=== PATIENT | female | born 1955 | race Caucasian/White ===

== ENCOUNTER → 2023-11-11 12:46 | Outpatient (REF) | payer OTHER, SELFPAY | LOC: HWWDC 12:46 | PROVIDERS: ATTENDING PHYSICIAN Family Medicine | DX: Z12.31 Encounter for screening mammogram for malignant neoplasm of breast (principal) | CPT/HCPCS: 77063; 77067 ==

== ENCOUNTER → 2023-11-22 09:13 | Outpatient (REF) | payer OTHER, SELFPAY | LOC: WDC 09:13 | PROVIDERS: ATTENDING PHYSICIAN Family Medicine | DX: R92.8 Other abnormal and inconclusive findings on diagnostic imaging of breast (principal) | CPT/HCPCS: 77065 ==

== ENCOUNTER 2024-11-17 16:38 | Inpatient (IN) | payer OTHER, SELFPAY ==
[2024-11-16] VITALS (12 sets, daily range): BP systolic 144–208; BP diastolic 60–93; BMI 25.1; BMI 25.0
[2024-11-16 12:25] LABS: Hematocrit 44.4 % (37.0-47.0); Hemoglobin 15.0 g/dL (12.0-16.0); Mean Corp Hgb Conc. 33.8 g/dL (33.0-37.0); Mean Corpuscular Volume 85.4 fL (81.0-99.0); Nucleated Red Blood Cells % 0 %; Platelet Count 236 10^3/uL (130-400); Red Cell Dist. Width 13.4 % (11.5-14.5)
[2024-11-16 12:36] LABS: INR 0.92; PT 12.8 Sec (11.4-14.6)
[2024-11-16 12:48] LABS: ALT (SGPT) 30 U/L (0-35); AST (SGOT) 33 U/L (14-36); Albumin 4.7 g/dl (3.5-5.0); Alkaline Phosphatase 81 U/L (38-126); Blood Urea Nitrogen 15 mg/dl (7-17); Calcium 10.5 mg/dl (8.4-10.2); Carbon Dioxide 29 mmol/L (22-30); Chloride 105 mmol/L (98-107); Estimated Creatinine Clearance 61 ml/min; Glucose 86 mg/dl (70-99); Potassium 5.1 mmol/L (3.5-5.1); Sodium 140 mmol/L (135-145); Total Protein 8.5 g/dl (6.3-8.2); eGFR > 60.00
--- NOTE | 2024-11-16 12:57 | ED.GENMED ---
History of Present Illness
General
Chief Complaint: Dizziness
Source: patient and spouse
Exam Limitations: none
Time Seen by Provider: 11/16/24 12:39
Nursing documentation reviewed up to this point in time: agreed with
History of Present Illness
History of Present Illness:
The patient is a 69-year-old female with a past medical history of depression and anxiety who was sent in from her primary care doctor's office for acute balance problems for 1 week. Patient reports over the last week, she is not dizzy, however,
she reports she is not able to walk straight. Over the last 5 days, she has fallen at least once a day due to problems with her balance. Patient did not strike her head. She denies headache. She denies vision changes. The falls have caused her
to have mild left wrist pain and bruising as well as right hip pain and bruising. Patient states she is not sure if she is having a stroke or if her lack of balance is due to her ' playing around with her trazodone'. The patient reports that she
was weaned off of her lorazepam 3 months ago. She reports that she has been on trazodone twice a day for at least 15 years. She reports that due to experiencing some anxiety, she has been taking her trazodone in the morning which she had not done
before. Patient reports she started doing this about 1 to 2 weeks ago. She admits to taking 100 mg of trazodone 3 times a day. Prior to this, she was only taking trazodone twice a day. She admits that the trazodone does make her tired. Patient
also reports 5 days of weakness in her right hand and arm.
Past History
Past History
ED Past Medical History: Fibromyalgia, HTN and Psychiatric
ED Past Surgical History: Other
Social History
Tobacco: Non-smoker
Alcohol: Former
Drug: None
Personal:
Living: with family
Employment: Other
Family History
Family History: Other
Review of Systems
Review of Systems
Allergies reviewed?: Yes
All Other Systems: ROS reviewed and negative except as documented in HPI and ROS
Constitutional: Reports no symptoms
EENT: Reports no symptoms
Respiratory: Reports trouble breathing (In the past but not active at this time)
Cardiac: Reports chest pain (In the recent past but not having chest pain now)
ABD/GI: Reports no symptoms
: Reports no symptoms
Musculoskeletal: Reports no symptoms
Skin: Reports no symptoms
Neurological: Reports dizzy and weakness (Right hand and arm)
Endocrine: Reports no symptoms
Hematologic/Lymphatic: Reports no symptoms
Psychiatric: Reports no symptoms
Phy Exam
Physical Exam
Physical Exam:
Physical Exam
General: no apparent distress, not acutely ill
Neck: supple. no meningeal signs. normal psoterior pharynx. Nontender cervical spine
Heart: s1/s2 regular rate and rhythm, no murmur. equal radial pulses.
Lungs: no acute respiratory distress. clear bilaterally. No vertebral spine tenderness
Abdomen: normal bowel sounds. not tender. no CVAT
Neuro: alert and orientedx3. No drift in upper and lower extremities when checking strength. Right hand policy analyst is less strong than left hand policy analyst which patient reports is new. Normal [id number]. Extraocular muscles
intact. Patient reports if she got up out of bed she would fall to 1 side
Skin: no rash. Ecchymotic left anterior wrist. Ecchymotic right proximal thigh area
Psychiatric: well kept. interactive and cooperative
Extremities: no edema. no calf tenderness. negative homans. good distal pulses. No bony tenderness of upper or lower extremities. Pelvis and hips nontender
Scores
NIH Stroke Score
Level of Consciousness: 0 - Alert
LOC Questions: 0-Answers both correctly
LOC Commands: 0-Performs both correctly
Best Horizontal Gaze: 0-Normal
Visual Chang: 0=Normal, no visual loss
Facial Palsy: 0=Normal, symmetrical
Motor - Right Arm: 0=No drift 10 seconds
Motor - Left Arm: 0=No drift 10 seconds
Motor - Right Le-No drift 5 seconds
Motor - Left Le-No drift 5 seconds
Limb Ataxia: 0-Absent
Sensation: 0-Normal
Best Language: 0-No aphasia
Dysarthria: 0-Normal
Extinction and Inattention: 0-No abnormality
NIH Total Score:: 0
Course
Orders/Labs/Results
Orders:
Orders
11/16/24 11:35
Electrocardiogram (*1) Urgent
Reason for Study: Chest Pain
CT Head W/o Iv Contrast Urgent
Comment: symtoms for 6-7 days
Reason For Exam: right arm weakness and persistant dizziness
11/16/24 11:36
EKG- Treatment ONCE
11/16/24 12:05
Alcohol Urgent
Comprehensive Metabolic Panel Urgent
Ferritin Urgent
Folate Urgent
Prothrombin Time Urgent
TSH Reflex To Free T4 Urgent
Troponin I Urgent
Vitamin B12 Urgent
Comment: FOLATE,FERRITIN,TSH REFLEX, B12 ADDED ON BY FLOOR 1:50PM 11-16-24
11/16/24 12:06
Complete Blood Count/With Diff Urgent
11/16/24 12:57
Consult Neurology [NEUROLOGY CONSULT] Urgent
Consulting Provider: Bam Kay
Was physician already notified: Yes
Reason for consult: acute balance problem
11/16/24 13:13
Add On- LAB Urgent
Tests Added?: serum alcohol
Urinalysis Reflex To Culture Urgent
11/16/24 13:47
Urine Drug Abuse Screen Routine
11/16/24 13:48
Add On- LAB Routine
Tests Added?: folate, ferritin, TSH reflex, B12
MR Brain Without Contrast Routine
Comment:
Reason For Exam: gait dysf, right hand weakness
Recent pill cam endoscopy?: No
11/16/24 13:51
Lorazepam [Ativan] 1 mg PO ONCE PRN PRN
11/16/24 14:04
Ot Eval And Treat Routine
Pt Eval And Treat Routine
Treatment: +Romberg, concern for stroke
Activity Level: Out of Bed-Early Mobility
11/16/24 15:00
Thiamine HCl [Vitamin B1] 100 mg PO DAILY
11/17/24 06:00
Cardiovascular Evaluation IN AM
Hemoglobin A1c [Glycohemoglobin (HgbA1c)] IN AM
Abnormal Lab Results
11/16/24 11/16/24
12:05 12:06
Absolute Monos (auto) 1.0 H 10^3/uL
(0.1-0.6)
Monocytes % 10.5 H %
(1.7-9.3)
Calcium 10.5 H mg/dl
(8.4-10.2)
Total Protein 8.5 H g/dl
(6.3-8.2)
11/16/24 12:06
11/16/24 12:05
Vital Signs
Initial and Last Documented VS:
Initial Vital Signs
Temp Pulse Resp BP Pulse Ox
98.1 F 89 18 208/86 96
11/16/24 11:28 11/16/24 11:28 11/16/24 11:28 11/16/24 11:28 11/16/24 11:28
Last Documented Vital Signs
Temp Pulse Resp BP Pulse Ox
98.1 F 88 16 186/83 96
11/16/24 11:28 11/16/24 12:51 11/16/24 12:30 11/16/24 13:00 11/16/24 12:57
MDM/Problems Addressed
Differential Diagnosis Includes:
Acute CVA, mental status due to trazodone, UTI
MDM/Problems Addressed:
Patient presents with acute disturbances in balance
Chronic conditions affecting care: HTN
Acute Exacerbation and/or Progression of Chronic Illness:
Patient is elevated blood pressure may be causing acute neurological problems such as a hypertensive urgency or emergency
Acute Exacerbation and/or Progression of Chronic Illness: HTN
*Pulse Oximetry
SaO2: 96
Oxygen Mode of Delivery: Room air
Patient hypoxic: no
Comment: 96% on room air
*EKG
Interpreted by ED Provider?: Yes
Interpretation: abnormal
Comparison EKG: no comparison EKG present
Rate: normal
Rhythm: sinus
Garner: normal axis
Interval: normal interval
QRS Pattern: normal QRS
Ischemia: no ischemia
*Records Manager Interpretation
Rate: normal
Interpretation: normal
Rhythm: sinus
*Critical Care Note
Total Time (30-74mins, 75-104mins- exclusive of procedures): 45 minutes
comment:
45 minutes critical care given to patient including reviewing her EKG, lab work, speaking to neurology, and counseling the patient and her
Data Reviewed
Review of Other/Old Records Reveals: Radiology Studies (CT head normal from 2019)
Source: patient and spouse
Update Note
Update Note:
Neurology came to evaluate patient. Due to concern about possible stroke, decision made to admit patient. Additionally, patient will be evaluated by PT given her frequent falls.
Given 1 week of symptoms and NIH stroke score of 0, decision made to not give patient thrombolytics
ED Attending Note
-
Portions of this chart may have been created with voice recognition software.� Occasional wrong word or��sound alike� substitutions may have occurred due to the inherent limitations of voice recognition software.
Discharge Plan
Departure
Patient Disposition: Admit
Date of Disposition: 11/16/24
Time of Disposition: 14:24
Admit to: Telemetry
Presentation/result/management discussed w/ accepting MD/DO: Hospitalist
Patient with high blood pressure during this ER visit?: Yes
Condition: Good
Covid-19: Not Applicable
Discharge Problem:
Acute cerebrovascular accident (CVA)
Prescriptions:
No Action
paroxetine HCl [Paxil] 40 MG tablet
40 mg PO DAILY
clonazepam [Klonopin] 0.5 MG tablet
0.5 mg PO TID
Tegretol 200 MG
200 mg PO BID
Motrin 600 MG Capsule
600 mg PO TID
Referrals:
Stephon Garcia DO [Family Provider, Family Practice]
Interventions
Interventions:
*Risk Screen - Suicide Last Done: 11/16/24 11:28
*General Assessment Last Done: 11/16/24 11:28
*Neglect/Abuse Screening Last Done: 11/16/24 11:28
*ED- Fall Risk Assessment Last Done: 11/16/24 11:55
*ED COVID-19 Vaccine History Last Done: 11/16/24 11:55
ED- Neurological Assessment Last Done: 11/16/24 12:20
Discharge Date and Time
Print Language: KINYARWANDA
[2024-11-16 13:00] LABS: Troponin I < 0.012 ng/ml
--- NOTE | 2024-11-16 13:29 | CON.NEURO4 ---
Addendum entered and electronically signed by Bam Kay MD 11/16/24 16:51:
Studies reviewed.
I have personally examined the patient. I reviewed and agree with the WORK STATION SUPPORT SPECIALIST's Note.
My addenda:
Awake, alert, interactive. No acute distress.
Speech intact.
Follows 2-step requests w/o difficulty. No tremor.
Extra-ocular movements grossly intact.
Facial movements full and symmetric. Hearing intact to normal conversational volume.
Normal UE movements bilaterally.
Neck: full ROM.
Chest: no dyspnea
Heart: no JVD
Ext: (-) Clubbing, (-) Cyanosis, (-) Edema
IMPRESSIONS/RECOMMENDATIONS:
Abrupt onset of gait dysfunction beginning approximately 5 to 7 days ago. Patient has been more unsteady on her feet at that time and reports that her typical hand numbness was worsened since that time
Differential diagnosis includes acute ischemic stroke, brainstem mass, somatization disorder
Check MRI of brain without contrast
Provide aspirin due to the possibility of acute ischemic stroke
Would have the patient have outpatient psychiatric evaluation due to her trazodone dependence
The patient's tardive dyskinesia will likely require medication for control
Start thiamine
D/W patient / family
Will continue to follow pending results.
Original Note:
Documented by User: Cindy Ralph NP 11/16/24 16:07
Consultation - Neurology 4
-
CONSULTING PHYSICIAN: Bam Kay MD
REFERRING PHYSICIAN: ER/Dr. Maddox
DICTATED BY: NICKO Hargrove
DATE/TIME OF REQUEST: 11/16/24
DATE/TIME OF CONSULTATION: 11/16/24
Reason for Consultation: Balance dysfunction
History of Present Illness:
This is a 69-year-old right-handed female who has presented to the hospital with (chief complaint). Patient reports that about 6-7 days ago she got out of bed and couldn't stay standing. She managed her way down the stairs and reached the kitchen,
where she fell backwards to the ground hurting her right wrist. She reports her walking has been very off balance since then, she fell again yesterday. When she walks she feels like she is falling to the right side. She reports issues with right
hand numbness for 10-15 years; at some point she saw ortho and had an injection in her shoulder that helped. She also notes mild left hand numbness starting 2 years ago. About 6 days ago when her balance became off she notes that her bilateral hand
numbness, particularly on the right became significantly worse. CT head was obtained on arrival and is negative for any acute abnormalities. Blood pressure is elevated at 208/86. She denies any headache, room-spinning, vision changes,
speech/swallow difficulty. She reports that she thinks it is her trazodone that is causing her symptoms, her notes that she doesn't always take her medications as prescribed. She is not taking any blood thinning medications.
Past Medical History: HTN, anxiety, insomnia, fibromyalgia
Surgical History: Denies.
Family History: Reviewed and noncontributory.
Social History: Former alcohol. Denies tobacco and illicit drug use.
Allergies: No known allergies.
Home Medications: See below.
Review of Symptoms:
Patient denies any fever, headache, chest pain, shortness of breath, GI or symptoms.
�Per the HPI.�All systems are reviewed negative except above.
Physical Exam:
The patient is afebrile, abdomen is nondistended, breathing is unlabored, skin is warm and dry, no edema.
NIH Stroke Scale:
I performed the NIH stroke scale on the patient on 11/16/24 at 1340. The patient scored 3 points on the NIH stroke scale assessment, which were assigned as follows: See below.
Neurologic Examination:
The patient is awake, alert and oriented x 3. Poor historian. +Lingual tardive dyskinesia. Moderate difficulty following two-step commands. There is no aphasia or dysarthria. On cranial nerve assessment, pupils are 3 mm bilateral, round and
reactive to light and accommodation. Visual chang are full. Extraocular movements are intact. Facial sensations are intact and bilaterally symmetrical, there is no facial asymmetry. Hearing is intact bilaterally to normal conversation volume.
Tongue palate and uvula are midline. Sternocleidomastoid strengths are full bilaterally. Motor strengths are 5/5 bilateral upper and lower extremities on medical research [place] scale. There is slight drift in the RUE. Deep tendon reflexes are 2+
bilateral upper and 1+ bilateral lower extremities and Babinski is absent bilaterally. There was no extinction noted on double simultaneous stimulation. Coordination is intact by finger to nose bilaterally. RUE satellites around RUE. Romberg is very
positive.
Lab Results: See below.
Neuro Imaging:
1. CT Head 11/16/24: No acute intracranial abnormality noted.
Differentials for the patient's presentation include:
1. Sudden onset gait dysfunction, and worsened chronic numbness. Concern for subacute ischemic stroke versus metabolic disturbance in the setting of mismanaging her medications.
2. Hypertensive urgency.
Patient has the following risk factors for their symptoms: HTN urgency, polypharmacy
IV Tenecteplase/IAT candidacy: Not a candidate due to outside of time window.
Recommendations:
-MRI brain noncontrast pending.
-Start aspirin 81mg daily.
-Goal normotension.
-Start thiamine 100mg PO daily.
-PT/OT evaluations.
-Would minimize sedating medications.
-NIHSS/neurological checks per unit guidelines.
-Provide patient with a stroke education packet.
-DVT prophylaxis.
Discussed patient care with: Dr. Kay, the patient, patient's spouse
Vital Signs and Labs
-
Vital Signs and Labs:
Vital Signs
Temp Pulse Resp BP Pulse Ox
98.1 F 88 16 186/83 96
11/16/24 11:28 11/16/24 12:51 11/16/24 12:30 11/16/24 13:00 11/16/24 12:57
Lab Results
11/16/24 12:06
11/16/24 12:05
PT 12.8 Sec (11.4-14.6) 11/16/24 12:05
INR 0.92 11/16/24 12:05
Sodium 140 mmol/L (135-145) 11/16/24 12:05
Potassium 5.1 mmol/L (3.5-5.1) 11/16/24 12:05
BUN 15 mg/dl (7-17) 11/16/24 12:05
Glucose 86 mg/dl (70-99) 11/16/24 12:05
Calcium 10.5 mg/dl (8.4-10.2) H 11/16/24 12:05
Medications
-
Home Medications
�Medication �Instructions �Recorded
Motrin 600 mg PO TID 03/14/08
Tegretol 200 mg PO BID 03/14/08
clonazepam 0.5 mg tablet (Klonopin) 0.5 mg PO TID 03/14/08
paroxetine HCl 40 mg tablet (Paxil) 40 mg PO DAILY 03/14/08
NIH Stroke Score
Subsequent NIH Scale
Date of Subsequent NIH Scale: 11/16/24
Time of Subsequent NIH Scale: 13:40
NIH Stroke Score
Level of Consciousness: 0 - Alert
LOC Questions: 0-Answers both correctly
LOC Commands: 0-Performs both correctly
Best Horizontal Gaze: 0-Normal
Visual Chang: 0=Normal, no visual loss
Facial Palsy: 0=Normal, symmetrical
Motor - Right Arm: 1=Drift < 10 seconds
Motor - Left Arm: 0=No drift 10 seconds
Motor - Right Le-No drift 5 seconds
Motor - Left Le-No drift 5 seconds
Limb Ataxia: 1-Present in one limb
Sensation: 1-Mild loss
Best Language: 0-No aphasia
Dysarthria: 0-Normal
Extinction and Inattention: 0-No abnormality
NIH Total Score:: 3
Modified Humphreys (mRS) Score
Modified Lily Scale (mRS): Slight disability. Able to look after own affairs.
Score: 2

Documented by User: Bam Kay MD 11/16/24 16:45
NIH Stroke Score
NIH Stroke Score
NIH Total Score:: 3
Modified Humphreys (mRS) Score
Score: 2
[2024-11-16] MEDS: VITAMIN B1 100 MG PO (14:50)
[2024-11-16] MEDS: DESYREL 100 MG PO ×2 (14:50→20:48)
--- NOTE | 2024-11-16 15:18 | HPS.HSE ---
Addendum entered and electronically signed by Dany Last MD 11/16/24 17:01:
This is an addendum to H&P written by Cindy Mas on 11/16/2024. �Patient seen and examined independently with VENETIAN BLIND TAPE CUTTER.
69-year-old female past medical history of hypertension, anxiety/depression, history of benzodiazepine use, presenting with feeling off balance for past 6 days and right arm numbness for 6 days. �No improvement of symptoms.
Vital signs show blood pressure up to 206/75.
Patient with possible acute CVA although symptoms for 6 days. �Also with hypertensive urgency likely due to olmesartan noncompliance. �Would be out of window for TNK. �Check MRI brain. �Check UDS, TSH, B12. �Check A1c and lipid panel. �Neurology
consulted. �Doubt patient is compliant with olmesartan. �Continue olmesartan and as needed labetalol if needed.
Original Note:
Family Physician
-
Family Physician: Stephon Garcia
Chief Complaint
-
acute gait dysfunction
History of Present Illness
Patient is a 69-year-old female with past medical history significant for hypertension and depression/anxiety who presented to [facility] ED for evaluation of acute gait dysfunction. Patient reports that she has been having difficulty ambulating and
staying on balance for the past 6 days. She states every time she gets out of bed she falls, denies any injuries and denies any head strike. Multiple bruises present consistent with falling. Patient reports she thinks this is happening because 'I
was playing with dosing of trazodone because I want to get off of it. But I can not get off of it.' She says associated 6 days of right arm numbness. Patient reports primary care manages her medications and she went to see them today and they
referred her to ED for evaluation and treatment. Patient said to this provider, 'Take me out back and shoot me like a horse. I think I would like that.' Nursing followed up with additional suicidal screening and was negative and patient reported she
was 'just joking.' Patient denies any dizziness, palpitations, chest pain, cough, shortness of breath, fever, chills, nausea, vomiting, constipation, diarrhea or urinary symptoms.
Medical History
Past Medical History
Past Medical History: Reports Other
Additional Past Medical History:
hypertension
depression/anxiety
Past Surgical History: Reports Other
Additional Past Surgical History:
Back surgery 05/27/2011
section 09/07/2016
Back operation 09/07/2016
Epigastric hernia repair 08/2016
Bilateral breast augmentation
bilateral breast augmentation revision
Social History
Tobacco: Non-smoker
Alcohol: None
Drug: None
Personal:
Living: With Family
Employment: Retired
Family History
Family History: Other (Father: Parkinson's Disease )
Allergies / Home Medications
Allergies reflects when Allergies were last updated in [employer].
Home Medications with original date entered in [employer]
Allergy/Medication List:
Allergies
Allergy/AdvReac Type Severity Reaction Status Date / Time
No Known Allergies Allergy Unverified 09/11/16 11:09
Home Medications
duloxetine 20 mg capsule,delayed release 60 mg PO DAILY 11/16/24
ibuprofen 200 mg tablet (Advil) 400 mg PO DAILYPRN PRN mild pain 11/16/24
olmesartan 20 mg tablet (Benicar) 20 mg PO DAILY 11/16/24
trazodone 100 mg tablet 100 mg PO TID 11/16/24
Review of Systems
-
History Source: Patient
Constitutional: Reports Night Sweats
EENT: Reports No Symptoms
Respiratory: Reports No Symptoms
Cardiac: Reports No Symptoms
Abdomen/GI: Reports No Symptoms
: Reports No Symptoms
Musculoskeletal: Reports Other (unsteady gait and multiple falls for 6 days )
Skin: Reports No Symptoms
Neurological: Reports Numbness (RUE )
Endocrine: Reports No Symptoms
Hematologic/Lymphatic: Reports No Symptoms
Psych: Reports No Symptoms
Physical Exam
Vital Signs
Vital Signs
Temp Pulse Resp BP Pulse Ox
98.1 F 92 19 186/83 96
11/16/24 11:28 11/16/24 14:30 11/16/24 14:30 11/16/24 13:00 11/16/24 12:57
Physical Exam
General: Well Developed, Well Nourished, No Apparent Distress, Comfortable and Conversant
HEENT: NormoCephalic, Moist mucous membranes and Atraumatic
Respiratory: Clear and Non Labored Respirations
Cardiac: S1/S2 and Regular Rhythm; No Murmur, Rub or Gallop
Breast: Deferred by me
GI: Soft, Non Tender, Non Distended and Normal Bowel Sounds
Rectal: Deferred by Provider
Genito-urinary: Deferred by me
Musculoskeletal: No Clubbing, No Cyanosis and No Edema
Skin: Warm and IV/Catheter Site
Neuro: Awake, AO x 3, No Motor Deficits, Nonfocal/grossly intact and No Sensory Deficits; No Slurred Speech, Facial Droop or Tremors
Hematologic/Lymphatic: No Lymphadenopathy
Psych: Calm
Laboratory Results
-
11/16/24 12:06
11/16/24 12:05
Laboratory Results
PT 12.8 Sec (11.4-14.6) 11/16/24 12:05
INR 0.92 11/16/24 12:05
Total Bilirubin 0.7 mg/dl (0.2-1.3) 11/16/24 12:05
AST 33 U/L (14-36) 11/16/24 12:05
ALT 30 U/L (0-35) 11/16/24 12:05
Alkaline Phosphatase 81 U/L (38-126) 11/16/24 12:05
Troponin I < 0.012 ng/ml 11/16/24 12:05
Data Reviewed
-
CT Scan: Report Reviewed by me (Head: No acute intracranial abnormality noted.)
Medical Tests (Nuc Med, Echo, EKG etc): Report Reviewed by me (EKG: NORMAL SINUS RHYTHM MINIMAL VOLTAGE CRITERIA FOR LVH, MAY BE NORMAL VARIANT ( R in aVL ))
Lab Data: Labs Reviewed by me
Impression/Plan
-
IMPRESSION/PLAN:
#acute gait dysfunction 2/2 CVA/TIA vs. medication adjustments
Head CT: No acute intracranial abnormality noted.
EKG: NORMAL SINUS RHYTHM
MINIMAL VOLTAGE CRITERIA FOR LVH, MAY BE NORMAL VARIANT ( R in aVL )
- Admit to telemetry
- Consult Neurology
- NIH and Neuro checks per protocol
- MRI in AM
- Consult PT/OT
#hypertension
- continue olmesartan
- Labetalol PRN
#depression/anxiety
- continue duloxetine and trazodone
Code status: full code
DVT prophylaxis: SCDs
[2024-11-16] MEDS: TRANDATE 10 MG IV (16:21)
[2024-11-16 17:09] LABS: Urine Character Clear (Clear)
[2024-11-16 18:13] LABS: Ferritin 51.6 ng/ml (11.1-264.0)
--- NOTE | 2024-11-16 18:29 | PTCARENOTE ---
Received pt from ED into room 412-1. Pt ambulatory to bed x1 assistance. Skin intact, L wrist and R hip bruising noted from previous falls. Bed alarm in place. NIH completed, score 1. Neuro check WNL. Pt denies any pain. Pt oriented to room,
educated pt on plan of care and importance of use of call dominguez. Pt states understanding. No complaints at this time, call dominguez within reach.
[2024-11-16 18:45] LABS: Folate 8.3 ng/ml (2.76-20); Vitamin B12 455 pg/ml (239-931)
--- NOTE | 2024-11-16 19:24 | PTCARENOTE ---
Rn flow floor attendant-admission question completed via phone interview.
[2024-11-17] VITALS (8 sets, daily range): BP systolic 139–173; BP diastolic 65–85; PULSE 81; O2SAT 94
[2024-11-17 08:49] LABS: Blood Urea Nitrogen 14 mg/dl (7-17); Calcium 10.0 mg/dl (8.4-10.2); Carbon Dioxide 25 mmol/L (22-30); Chloride 107 mmol/L (98-107); Estimated Creatinine Clearance 58 ml/min; Glucose 113 mg/dl (70-99); HDL Cholesterol 69 mg/dl; LDL Cholesterol, Calculated 103 mg/dl; Potassium 4.2 mmol/L (3.5-5.1); Sodium 139 mmol/L (135-145); Very Low Density Lipoprotein 17 mg/dl (0-30); eGFR > 60.00
[2024-11-17 08:54] LABS: Glycohemoglobin (HgbA1c) 4.9 % (4.0-5.6)
[2024-11-17] MEDS: CYMBALTA DELAYED RELEASE 60 MG PO (10:06)
[2024-11-17] MEDS: BENICAR 20 MG PO (10:06)
[2024-11-17] MEDS: VITAMIN B1 100 MG PO (10:07)
[2024-11-17] MEDS: DESYREL 100 MG PO ×3 (10:07→21:24)
[2024-11-17] MEDS: FLUSH (NSS) 1 FLUSH IV (10:09)
--- NOTE | 2024-11-17 12:27 | PTOTSP ---
DESIZING PAD OPERATOR Evaluations
Functional oral/pharyngeal swallow based on bedside swallow evaluation. Patient at acute risk for dysphagia given location of strokes on MRI of Brain. Consider instrumental swallow study for comprehensive assessment.
Patient with signs concerning for mild expressive aphasia and concern for cognitive linguistic changes specifically to short term memory. Further cognitive linguistic testing warranted.
Recommend:
1. Regular, Thin
2. Meds as best tolerated
3. Strategies: upright to 90 degrees, small sips/bites, slow rate, pick soft/moist foods
4. Video swallow study
5. Continued language/cog eval/tx at the acute care level and after D/C.
--- NOTE | 2024-11-17 13:25 | W.PN.NEURO.1 ---
Today's Communication / Plan
-
Continue aspirin alone as antiplatelet therapy. Would not add clopidogrel due to the above-mentioned hemosiderin deposits and possible amyloid angiopathy
Repeated MRI of brain with and without contrast in November 2024 to reevaluate the patient's right medullary mass
Psychiatric evaluation for the patient's trazodone use and perhaps misuse
Rehabilitation evaluations
Goal of normotension
Goal of normoglycemia
Medical educational materials to be provided
Due to elevated LDL greater than 70, initiate atorvastatin 40 mg daily
Neuro Assessment/Plan
Assessment
Abrupt onset of gait dysfunction beginning approximately 5 to 7 days ago (November 12, 2024). Patient has been more unsteady on her feet at that time and reports that her typical hand numbness was worsened since that time
Due to acute ischemic left centrum semiovale stroke as demonstrated above. Patient additionally has changes in the images above which are suggestive of either hypertensive encephalopathy or amyloid angiopathy. The patient was also described as
having a right ventral medullary hyperintensity which could not be discerned as to whether or not the lesion was due to a mass
Patient was not a candidate for either tenecteplase or intra-arterial thrombectomy due to timeframe out of window
Plan
Continue aspirin alone as antiplatelet therapy. Would not add clopidogrel due to the above-mentioned hemosiderin deposits and possible amyloid angiopathy
Repeated MRI of brain with and without contrast in November 2024 to reevaluate the patient's right medullary mass
Psychiatric evaluation for the patient's trazodone use and perhaps misuse
Rehabilitation evaluations
Goal of normotension
Goal of normoglycemia
Medical educational materials to be provided
Due to elevated LDL greater than 70, initiate atorvastatin 40 mg daily
Will follow as outpatient
Subjective/Objective
Subjective Data
Date of Service: November 17, 2024
Objective Data
Vital Signs
Temp Pulse Resp BP Pulse Ox
36.7 C 85 16 142/80 95
11/17/24 07:37 11/17/24 07:37 11/17/24 07:37 11/17/24 07:37 11/17/24 09:13
Lab Results
11/16/24 12:06
11/17/24 07:45
PT 12.8 Sec (11.4-14.6) 11/16/24 12:05
INR 0.92 11/16/24 12:05
Sodium 139 mmol/L (135-145) 11/17/24 07:45
Potassium 4.2 mmol/L (3.5-5.1) 11/17/24 07:45
BUN 14 mg/dl (7-17) 11/17/24 07:45
Glucose 113 mg/dl (70-99) H 11/17/24 07:45
Calcium 10.0 mg/dl (8.4-10.2) 11/17/24 07:45
LDL Cholesterol, Calc 103 mg/dl 11/17/24 07:45
Vitamin B12 455 pg/ml (239-931) 11/16/24 12:05
Ur Buprenorphine Negative (Negative) 11/16/24 16:52
Patient Allergies
clonazepam Allergy (Verified 11/16/24 17:20)
pt. states cannot tolerate clonazepam
[2024-11-17] MEDS: LOW STRENGTH ASPIRIN 81 MG PO (15:08)
--- NOTE | 2024-11-17 15:31 | PTOTSP ---
Speech Therapy VSE:
Patient presents with functional�oral and�pharyngeal stage of swallowing. No confirmed penetration or aspiration across the study. No significant pharyngeal residue. Please see patient care note for full details of swallowing physiology.
�
Recommend:��
1. Continue regular solids and thin liquids
2. Medications as tolerated
3. Aspiration and reflux precautions
4. No further skilled intervention warranted for swallowing, however GLASS PRESSER to continue to follow for continued language/cog eval/tx at the acute care level and after D/C.
--- NOTE | 2024-11-17 16:18 | CM ---
Patient seen bedside w/ daughter, initial assessment completed. Patient is a 69-year-old female with past medical history significant for hypertension and depression/anxiety who presented to [facility] for evaluation of acute gait dysfunction.
Patient resides w/ spouse in a 2sty townhouse, 1 step to enter from the outside. Patient is independent w/ ambulation, no device required. Independent w/ ADLs, no DME reported. No SNF/HC hx reported.
Address, point of contact and insurance verified
PCP: Stephon Garcia
Pharmacy: [facility]
Patient admitted obs. DAVIS form verbally reviewed, copy provided, copy on chart
Therapy assessed, recommending acute rehab at d/c. Patient and daughter agreeable to [facility], referral sent in [facility]
Requested physiatry assessment order
Will need insurance auth
Plan: Acute Rehab
--- NOTE | 2024-11-17 16:35 | W.PN.HOSP.TC ---
Today's Communication/Plan
-
Check carotid ultrasound
Check echo
Physiatry eval
Assessment / Plan
Assessment / Plan
69-year-old with gait dysfunction difficulty with balance for the past 6 days multiple bruises consistent with falling also has right arm numbness for the past 6 days. She also was trying to 'play with trazodone dose because she wants to get out of
it.
CVS: S1-S2 normal
Chest: CTA B/L
Abdomen: Soft, NT / Bowel sounds present
Extremities: No edema, normal pulses
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
MRI-6.5 mm acute ischemic infarct in the periventricular posterior left frontal lobe, anterior left parietal lobe.Small chronic lacunar infarcts in the left thalamus and anterior limb of the right internal capsule. 1 cm lesion in the right
ventricular medulla-subacute infarct containing residual cytotoxic edema/demyelination/primary brain tumor. 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 Mild to moderate white matter
leukoaraiosis in the frontal and parietal lobes. Mild diffuse cerebral and cerebellar volume loss. Severe discogenic degenerative disease at C4/C5 with moderate-sized disc herniation causing moderate spinal cord compression and central canal
stenosis.
# Acute gait dysfunction Likely from CVA
MRI of the brain as above
Check echo and carotid ultrasound
NIH and neurochecks
Neurology evaluation
Continue aspirin, statin.
No Plavix per neurology given hemosiderin deposit
Continue neurochecks.
Physiatry consulted
PT OT
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
# Hypertension-continue Benicar
# Depression and anxiety-continue Cymbalta and trazodone
# Fibromyalgia/arthritis/scoliosis
# DVT prophylaxis-SCDs
# Full code
Discussed with multiple family members at bedside
Discussed with nursing
Discussed with case management
Long discussion with the patient's family they had multiple questions all were answered to the best of my ability.
Part of this note was created using voice recognition system. Occasional wrong word or��sound alike� substitutions may have inadvertently occurred due to the inherent limitations of voice recognition software. If noted kindly bring it to my
attention for correction.
Anticipated Discharge: 24 - 48 hours
Subjective/Interval History
-
Date of Service: November 17, 2024
Objective Data
-
Labs:
Laboratory Results
11/17/24
07:45
Sodium 139
Potassium 4.2
Chloride 107
Carbon Dioxide 25
BUN 14
Creatinine 0.7
Glucose 113 H
Calcium 10.0
Vital Signs:
Vital Signs
Temp Pulse Resp BP Pulse Ox
97.3 F 80 18 169/85 95
11/17/24 15:25 11/17/24 15:25 11/17/24 15:25 11/17/24 15:25 11/17/24 15:25
I&O
11/16/24 11/17/24 11/18/24
06:59 06:59 06:59
Intake Total 0 / 0
Balance 0 / 0
--- NOTE | 2024-11-17 16:37 | PTCARENOTE ---
Pt AAO x3, FERGUSON; denies weakness/dizziness but is unsteady w/OOB activity; Fall prec maintained. NIHSS 0. Speech slow at times. Telemetry:NSR. On room air- pulse ox 95%, no SOB noted. Abd large, soft, shanna PO well; no dysphagia noted. Voids in BR
without difficulty. Resting in bed at present, no c/o. Family members at bedside. Will continue to monitor.
[2024-11-17] MEDS: LIPITOR 40 MG PO (18:03)
[2024-11-18 03:56] VITALS: BP 168/70
[2024-11-18 07:00] VITALS: BP 168/83
[2024-11-18 08:14] LABS: Hematocrit 43.9 % (37.0-47.0); Hemoglobin 14.9 g/dL (12.0-16.0); Mean Corp Hgb Conc. 33.9 g/dL (33.0-37.0); Mean Corpuscular Volume 84.9 fL (81.0-99.0); Platelet Count 230 10^3/uL (130-400); Red Cell Dist. Width 13.3 % (11.5-14.5)
[2024-11-18] MEDS: BENICAR 20 MG PO (08:23)
[2024-11-18] MEDS: VITAMIN B1 100 MG PO (08:23)
[2024-11-18] MEDS: CYMBALTA DELAYED RELEASE 60 MG PO (08:23)
[2024-11-18] MEDS: LOW STRENGTH ASPIRIN 81 MG PO (08:23)
[2024-11-18] MEDS: DESYREL PO (08:25)
[2024-11-18 08:45] LABS: Blood Urea Nitrogen 14 mg/dl (7-17); Calcium 10.0 mg/dl (8.4-10.2); Carbon Dioxide 26 mmol/L (22-30); Chloride 106 mmol/L (98-107); Estimated Creatinine Clearance 51 ml/min; Glucose 113 mg/dl (70-99); Magnesium 2.1 mg/dl (1.6-2.3); Potassium 4.4 mmol/L (3.5-5.1); Sodium 139 mmol/L (135-145); eGFR > 60.00
[2024-11-18 11:00] VITALS: BP 128/84
--- NOTE | 2024-11-18 13:24 | W.PN.HOSP.TC ---
Today's Communication/Plan
-
Echo and carotid ultrasound are pending-I did speak with both departments yesterday about the order.
PT OT
Await Neuro rounds
Assessment / Plan
Assessment / Plan
69-year-old with gait dysfunction difficulty with balance for the past 6 days multiple bruises consistent with falling also has right arm numbness for the past 6 days. She also was trying to 'play with trazodone dose because she wants to get out of
it.
CVS: S1-S2 normal
Chest: CTA B/L
Abdomen: Soft, NT / Bowel sounds present
Extremities: No edema, normal pulses
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
MRI-6.5 mm acute ischemic infarct in the periventricular posterior left frontal lobe, anterior left parietal lobe.Small chronic lacunar infarcts in the left thalamus and anterior limb of the right internal capsule. 1 cm lesion in the right
ventricular medulla-subacute infarct containing residual cytotoxic edema/demyelination/primary brain tumor. 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 Mild to moderate white matter
leukoaraiosis in the frontal and parietal lobes. Mild diffuse cerebral and cerebellar volume loss. Severe discogenic degenerative disease at C4/C5 with moderate-sized disc herniation causing moderate spinal cord compression and central canal
stenosis.
# Acute gait dysfunction Likely from CVA
MRI of the brain as above
Check echo and carotid ultrasound-pending
NIH and neurochecks
Neurology evaluation
Continue aspirin, statin.
No Plavix per neurology given hemosiderin deposit
Physiatry consulted
PT OT
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
# Hypertension-continue Benicar
# Depression and anxiety-continue Cymbalta and trazodone. Decrease the dose of Cymbalta to 40 mg, decrease the dose of trazodone to 100 mg at night
# Fibromyalgia/arthritis/scoliosis
# DVT prophylaxis-Lovenox
# Full code
Discussed with multiple family members at bedside
Discussed with nursing
Discussed with neurology
Long discussion with the patient's family members ( 4 members) they had multiple questions.
Family brought several bottles of medicines, some of them were . There were different prescriptions for trazodone 100 mg as well as 300 mg. All the trazodone prescriptions said for the patient to take it at night only however she was
confused and was taking it 3 times daily.
Patient was also on Ativan at some point but has been weaned off that for a long time.
I suggested that patient's and patient sit down and fill a pillbox once a week so that she is not confusing the medicines. I agreed with the family suggestion that somebody else should accompany her for all her doctors visits as well.
Patient seems to be agreeable for this.
Reviewed MRI findings including previous/old strokes.
time spent more than 50 min
Part of this note was created using voice recognition system. Occasional wrong word or��sound alike� substitutions may have inadvertently occurred due to the inherent limitations of voice recognition software. If noted kindly bring it to my
attention for correction.
Anticipated Discharge: 24 - 48 hours
Subjective/Interval History
-
Date of Service: November 18, 2024
Objective Data
-
Labs:
Laboratory Results
11/18/24
07:45
WBC 7.2
Hgb 14.9
Hct 43.9
Plt Count 230
Sodium 139
Potassium 4.4
Chloride 106
Carbon Dioxide 26
BUN 14
Creatinine 0.8
Glucose 113 H
Calcium 10.0
Vital Signs:
Vital Signs
Temp Pulse Resp BP Pulse Ox
98.3 F 93 16 128/84 94
11/18/24 11:00 11/18/24 11:00 11/18/24 11:00 11/18/24 11:00 11/18/24 11:00
I&O
11/17/24 11/18/24 11/19/24
06:59 06:59 06:59
Intake Total 0 / 0 1320 / 1320
Balance 0 / 0 1320 / 1320
[2024-11-18 15:00] VITALS: BP 154/69
[2024-11-18] MEDS: LIPITOR 40 MG PO (17:18)
[2024-11-18] MEDS: LOVENOX 40 MG SC (17:18)
[2024-11-18] MEDS: TYLENOL 650 MG PO (18:00)
[2024-11-18] MEDS: MIRALAX 17 GRAMS PO (18:11)
--- NOTE | 2024-11-18 19:09 | W.PN.NEURO.1 ---
Today's Communication / Plan
-
ECHO, carotids, rehab
ASA 81 and lipitor 40
balancing stroke vs bleed risk, ASA 81 and i would not give anything stronger given suspicion for amyloid angiopathy and therefore alz
Neuro Assessment/Plan
Assessment
Abrupt onset of gait dysfunction beginning approximately 5 to 7 days ago (November 12, 2024). Patient has been more unsteady on her feet at that time and reports that her typical hand numbness was worsened since that time
Acute embolic stroke
Long discussion with patient and son, reviewed MRI imaging showing stroke left centrum semiovale, additionally there is a dot of stroke in the corpus callosum, and right occipital lobe suggesting embolic etiology. pointed out 2 chronic strokes in
left thalamus and right internal capsule Also pointed out numerous microbleeds, and in the absence of uncontrolled HTN, this is amyloid angiopathy, and I would not anticoagulate her even if afib were found; would continue ASA 81. with amyloid
angiopathy, she will also have alz, and my suspicion that this is causing mild dementia, based on her no longer cooking though there is also quite a bit of depression going on, and sedation from trazodone which has since been decreased from 100 TID
to bedtime only with more wakefulness. my suspicion that this could be Alz in the young with a genetic cause and encouraged her son to get himself tested for PSEN1 and PSEN2. We also reviewed the right medullary lesion, and in the absence of
hyponatremia/osmotic demyelination history, this is either a subacute stroke with cytotoxic edema (more likely) or glioma, and she will need repeat MRI with gado in 1 month
still needs ECHO and carotids.
long discussion with family all ? answered
Plan
Continue aspirin alone as antiplatelet therapy. Would not add clopidogrel due to the above-mentioned hemosiderin deposits and possible amyloid angiopathy
Repeated MRI of brain with and without contrast in November 2024 to reevaluate the patient's right medullary mass
trazodone decreased to 100 HS. she is off BZDs x3 months.
Rehabilitation evaluations
Goal of normotension
Goal of normoglycemia
Medical educational materials to be provided
Due to elevated LDL greater than 70, initiate atorvastatin 40 mg daily
Will follow as outpatient
Subjective/Objective
Subjective Data
Date of Service: November 18, 2024
still with mild right sided weakness. son reports she is a little impulsive even at home
Objective Data
Vital Signs
Temp Pulse Resp BP Pulse Ox
36.6 C 91 16 154/69 94
11/18/24 15:00 11/18/24 15:00 11/18/24 15:00 11/18/24 15:00 11/18/24 15:00
Lab Results
11/18/24 07:45
11/18/24 07:45
PT 12.8 Sec (11.4-14.6) 11/16/24 12:05
INR 0.92 11/16/24 12:05
Sodium 139 mmol/L (135-145) 11/18/24 07:45
Potassium 4.4 mmol/L (3.5-5.1) 11/18/24 07:45
BUN 14 mg/dl (7-17) 11/18/24 07:45
Glucose 113 mg/dl (70-99) H 11/18/24 07:45
Calcium 10.0 mg/dl (8.4-10.2) 11/18/24 07:45
LDL Cholesterol, Calc 103 mg/dl 11/17/24 07:45
Vitamin B12 455 pg/ml (239-931) 11/16/24 12:05
Ur Buprenorphine Negative (Negative) 11/16/24 16:52
Patient Allergies
clonazepam Allergy (Verified 11/16/24 17:20)
pt. states cannot tolerate clonazepam
Physical Exam
-
AAOx3
R NL flattening
RUE/LE 5-/5
[2024-11-18 19:19] VITALS: BP 113/79
[2024-11-18] MEDS: DESYREL 100 MG PO (21:18)
[2024-11-18] MEDS: SENOKOT 17.2 MG PO (21:18)
[2024-11-18 23:18] VITALS: BP 144/61
[2024-11-19] VITALS (8 sets, daily range): BP systolic 135–178; BP diastolic 66–86; PULSE 99; O2SAT 95
[2024-11-19] MEDS: LOW STRENGTH ASPIRIN 81 MG PO (08:54)
[2024-11-19] MEDS: MIRALAX 17 GRAMS PO (08:54)
[2024-11-19] MEDS: CYMBALTA DELAYED RELEASE 40 MG PO (08:54)
[2024-11-19] MEDS: BENICAR 20 MG PO (08:54)
[2024-11-19] MEDS: SENOKOT 17.2 MG PO (08:54)
--- NOTE | 2024-11-19 14:33 | W.PN.HOSP.TC ---
Today's Communication/Plan
-
CUS ECHO , Physiatry eval pending.
Assessment / Plan
Assessment / Plan
69-year-old with gait dysfunction difficulty with balance for the past 6 days multiple bruises consistent with falling also has right arm numbness for the past 6 days. She also was trying to 'play with trazodone dose because she wants to get out of
it.
CVS: S1-S2 normal
Chest: CTA B/L
Abdomen: Soft, NT / Bowel sounds present
Extremities: No edema, normal pulses
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
MRI-6.5 mm acute ischemic infarct in the periventricular posterior left frontal lobe, anterior left parietal lobe.Small chronic lacunar infarcts in the left thalamus and anterior limb of the right internal capsule. 1 cm lesion in the right
ventricular medulla-subacute infarct containing residual cytotoxic edema/demyelination/primary brain tumor. 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 Mild to moderate white matter
leukoaraiosis in the frontal and parietal lobes. Mild diffuse cerebral and cerebellar volume loss. Severe discogenic degenerative disease at C4/C5 with moderate-sized disc herniation causing moderate spinal cord compression and central canal
stenosis.
# Acute gait dysfunction Likely from CVA
MRI of the brain as above
Check echo and carotid ultrasound-pending
NIH and neurochecks
Neurology evaluation
Continue aspirin, statin.
No Plavix per neurology given hemosiderin deposit
Physiatry consulted
PT OT
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
# Hypertension-continue Benicar
# Depression and anxiety-continue Cymbalta and trazodone. Decrease the dose of Cymbalta to 40 mg, decrease the dose of trazodone to 100 mg at night
# Fibromyalgia/arthritis/scoliosis
# DVT prophylaxis-Lovenox
# Full code
Discussed with son at bed side
Discussed with nursing
Part of this note was created using voice recognition system. Occasional wrong word or��sound alike� substitutions may have inadvertently occurred due to the inherent limitations of voice recognition software. If noted kindly bring it to my
attention for correction.
Anticipated Discharge: Within 24 hours
Subjective/Interval History
-
Date of Service: November 19, 2024
Objective Data
-
Vital Signs:
Vital Signs
Temp Pulse Resp BP Pulse Ox
97.9 F 81 16 166/86 96
11/19/24 11:08 11/19/24 11:08 11/19/24 11:08 11/19/24 13:18 11/19/24 14:25
I&O
11/18/24 11/19/24 11/20/24
06:59 06:59 06:59
Intake Total 1320 / 1320 840 / 1320 480 / 480
Balance 1320 / 1320 840 / 1320 480 / 480
[2024-11-19] MEDS: CITROMA 300 ML PO (16:01)
[2024-11-19] MEDS: LOVENOX 40 MG SC (17:58)
[2024-11-19] MEDS: LIPITOR 40 MG PO (17:58)
[2024-11-19] MEDS: DESYREL 100 MG PO (21:36)
[2024-11-19] MEDS: SENOKOT PO (21:36)
[2024-11-20] VITALS (7 sets, daily range): BP systolic 131–171; BP diastolic 64–88; PULSE 76; O2SAT 97
--- NOTE | 2024-11-20 07:45 | W.PN.HOSP.TC ---
Today's Communication/Plan
-
Awaiting report of Inv
Will need rehab afterwards
Will FU with Neuro outpatient
Assessment / Plan
Assessment / Plan
# Acute gait dysfunction Likely from L CVA
-MRI of the brain 11/17/2024
1. 6.5 mm ACUTE ISCHEMIC INFARCT in the periventricular posterior left frontal lobe-anterior left parietal lobe junction.
2. Small chronic lacunar infarcts in the left thalamus and anterior limb of the right internal capsule.
3. 1.0 cm lesion in the right ventral medulla. Diagnostic possibilities are (1) a subacute ischemic infarct containing residual cytotoxic edema, (2) osmotic demyelination, or (3) a primary brain tumor.
4. Small chronic intraparenchymal microhemorrhages in the thalami and deborah (probably HYPERTENSIVE MICROANGIOPATHY).
5. Mild to moderate white matter leukoaraiosis in the frontal and parietal lobes.
6. Mild diffuse cerebral and cerebellar volume loss.
7. Severe discogenic degenerative disease at C4/C5 with a moderate-sized central disc herniation causing moderate spinal cord compression and central canal stenosis.
-Echo and carotid ultrasound done, awaiting report
-No Plavix per neurology given hemosiderin deposit
-Continue PT OT
-Physiatry consulted
# Severe discogenic degenerative disease
-C4-C5 with disc herniation for outpatient spine evaluation
# Hypertension-
-20mg Benicar
# Depression and anxiety
-Continue Cymbalta(40mg) and trazodone(100mg) @night.
# Fibromyalgia/arthritis/scoliosis
# Full code
# DVT prophylaxis-SCDs
Anticipated Discharge: Within 24 hours
Subjective/Interval History
-
Date of Service: November 20, 2024
Patient is a 69-year-old female who presented on account of acute balance problems for 1 week with recurrent falls.
No complains today
Objective Data
-
Vital Signs:
Vital Signs
Temp Pulse Resp BP Pulse Ox
97.6 F 84 16 163/64 96
11/20/24 03:43 11/20/24 03:43 11/20/24 03:43 11/20/24 03:43 11/20/24 03:43
I&O
11/19/24 11/20/24 11/21/24
06:59 06:59 06:59
Intake Total 840 / 1320 1060 / 1060
Balance 840 / 1320 1060 / 1060
Review of Systems
-
History Source: Patient and Family ( )
Constitutional: Reports No Symptoms
EENT: Reports No Symptoms Reported
Respiratory: Reports No Symptoms
Cardiac: Reports No Symptoms
Abdomen/GI: Reports No Symptoms
Genitourinary: Reports No Symptoms
Skin: Reports No Symptoms
Neuro: Reports Other (RUE paresthesia)
Physical Exam
-
General: Well Developed, Well Nourished and No Apparent Distress
HEENT: Normocephalic and Atraumatic
Respiratory: Clear to Auscultation
Cardiac: Regular Rhythm and S1/S2
GI: Soft, Nontender and Nondistended
Neuro: Awake, Alert, Oriented, AO x 3 and Other (FACE- L/R Motor symmetry & equal sensation grossly, UE- R- 4+ strength, sensation grossly intact, mild pronator drift L- 5+ strength, sensation grossly intact LE- R- 4+ strength, sensation grossly
intact, L- 5+ strength, sensation grossly intact)
Psych: Calm
Data Reviewed
-
MRI: Report Reviewed by me, Discussed with Physician and Discussed with Patient
Medical Tests (Nuc Med, Echo etc): Report Reviewed by me, Discussed with Physician and Discussed with Patient
Labs: Labs Reviewed by me, Discussed with Physician and Discussed with Patient
[2024-11-20] MEDS: MIRALAX PO (08:46)
[2024-11-20] MEDS: SENOKOT PO ×2 (08:46→21:15)
[2024-11-20] MEDS: LOW STRENGTH ASPIRIN 81 MG PO (08:47)
[2024-11-20] MEDS: BENICAR 20 MG PO (08:47)
[2024-11-20] MEDS: CYMBALTA DELAYED RELEASE 40 MG PO (08:47)
--- NOTE | 2024-11-20 14:13 | CM ---
Patient cont to be recommended for acute rehab. Discussed w/ [facility], can accept patient if insurance approves as patient appears borderline.
Updated patient and spouse bedside
Called [facility] to initiate acute rehab auth, spoke w/ Neva. Per Neva, medical stenographer will have to review as patient walked 50 feet w/ therapy yesterday. CM will await a call back w/ determination
Pending auth ref # [id number]
Plan: [facility]; pending insurance determination
--- NOTE | 2024-11-20 15:11 | W.PN.UPDATE ---
Update Note
Progress Note Update
69-year-old with gait dysfunction difficulty with balance for the past 6 days multiple bruises consistent with falling also has right arm numbness for the past 6 days. She also was trying to 'play with trazodone dose because she wants to get out of
it.
CVS: S1-S2 normal
Chest: CTA B/L
Abdomen: Soft, NT / Bowel sounds present
Extremities: No edema, normal pulses
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
MRI-6.5 mm acute ischemic infarct in the periventricular posterior left frontal lobe, anterior left parietal lobe.Small chronic lacunar infarcts in the left thalamus and anterior limb of the right internal capsule. 1 cm lesion in the right
ventricular medulla-subacute infarct containing residual cytotoxic edema/demyelination/primary brain tumor. 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 Mild to moderate white matter
leukoaraiosis in the frontal and parietal lobes. Mild diffuse cerebral and cerebellar volume loss. Severe discogenic degenerative disease at C4/C5 with moderate-sized disc herniation causing moderate spinal cord compression and central canal
stenosis.
Echo 11/20/2024-normal LV size and systolic function. EF 60 to 65%. Moderate AI. No evidence of PFO
CUS -pending
# Acute gait dysfunction Likely from CVA
MRI of the brain as above
Echo as above. CUS pending
Neurology evaluation appreciated
Continue aspirin, statin.
No Plavix per neurology given hemosiderin deposit
Physiatry consulted
PT OT
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
# Hypertension-continue Benicar
# Depression and anxiety-continue Cymbalta and trazodone. Decreased the dose of Cymbalta to 40 mg, decreased the dose of trazodone to 100 mg at night
# Fibromyalgia/arthritis/scoliosis
# DVT prophylaxis-Lovenox
# Full code
Discussed with at bed side
Discussed with nursing
Messaged physiatry
Discussed with case management
Part of this note was created using voice recognition system. Occasional wrong word or��sound alike� substitutions may have inadvertently occurred due to the inherent limitations of voice recognition software. If noted kindly bring it to my
attention for correction.
[2024-11-20] MEDS: LIPITOR 40 MG PO (17:12)
[2024-11-20] MEDS: LOVENOX 40 MG SC (17:12)
[2024-11-20] MEDS: DESYREL 100 MG PO (21:04)
--- NOTE | 2024-11-20 23:19 | CON.MD ---
Consultation - Medical
-
Chief Complaint:�Stroke
�
History of Present Illness:�69-year-old right-handed female with PMH (as below) presented to [facility] on 11/16/2024 with difficulty with balance for 6 days prior to admission. MRI noting acute ischemic infarct in the periventricular
posterior left frontal lobe�anterior left parietal lobe junction. Also with small chronic lacunar infarcts in the left thalamus and anterior limb of the right internal capsule. Overall doing well except for difficulty with walking and ADLs.
Denies any vision loss or difficulty with swallowing. No numbness or tingling.
�
Past Medical History:�Hypertension, anxiety, depression
Procedure History:�Back surgery 05/27/2011, section 09/07/2016, back operation 09/07/2016, epigastric hernia 08/2016, bilateral breast augmentation, bilateral breast augmentation revision
Family History:�
�
Social History:�
Functional Level Premorbidly:�Independent with all activities�
Functional Level Currently:�Min assist ADLs, supervision bed mobility, min assist to complete simple ADLs, functional transfers, and ambulation 50 feet x 4 with rolling walker requiring multiple rest breaks to scan environment. Unsteady with
rolling walker at times and veering to the right.. BCAT demonstrates decreased attention, executive functioning, recall, visual-spatial skills
�
Tobacco:�Denies�
Alcohol:�Denies�
Drug use:�Denies�
�
Lives with:�Spouse
24-hour assistance available:�Yes
Number of floors:�2
# steps to enter:�1
# steps to second floor: Full flight
Potential First floor set up:�Yes
Driving:�Yes
Occupation:�Retired
�
�
Allergies:�
Allergy/AdvReac Type Severity Reaction Status Date / Time
clonazepam Allergy pt. states Verified 11/16/24 17:20
cannot
tolerate
clonazepam
�
Review of Systems:�
Constitutional: (x) abNormal _fatigue
Eye: (x) Normal _
Ear/Nose/Throat: (x) Normal _
Respiratory: (x) Normal _
Cardiovascular: (x) Normal _
Gastrointestinal: (x) abNormal _constipation
Genitourinary: (x) Normal _
Musculoskeletal: (x) Normal _
Integumentary: (x) Normal _
Neurologic: (x) abNormal _stroke as above
Psychiatric: (x) Normal _
Endocrine: (x) Normal _
Hematologic/Lymphatic: (x) Normal _
Allergic/Immunologic: (x) Normal _
�
Medications:�
Active Current Visit Medication List
Category Date Time Status
Acetaminophen [Tylenol] Med 11/16/24 17:12 Active
650 mg PO Q4HPRN PRN
Aspirin Chewable [Low Strength Aspirin] Med 11/17/24 14:00 Active
81 mg PO DAILY
Atorvastatin [Lipitor] Med 11/17/24 18:00 Active
40 mg PO QPM
Duloxetine Delayed Release [Cymbalta Delayed Release] Med 11/19/24 08:00 Active
40 mg PO DAILY
Enoxaparin Sodium [Lovenox] Med 11/18/24 18:00 Active
40 mg SC QPM
Flush (0.9% Sodium Chloride) [Flush (Nss)] Med 11/16/24 18:00 Active
See Dose Instructions IV PER PROTOCOL
Olmesartan Medoxomil [Benicar] Med 11/17/24 08:00 Active
20 mg PO DAILY
Polyethylene Glycol Powder [Miralax] Med 11/18/24 18:00 Active
17 grams PO DAILY
Sennosides [Senokot] Med 11/18/24 20:00 Active
17.2 mg PO BID
Trazodone [Desyrel] Med 11/18/24 22:00 Active
100 mg PO HS
�
Vitals:�
Temp Pulse Resp BP Pulse Ox
98.2 F 81 17 168/75 95
11/20/24 19:19 11/20/24 19:19 11/20/24 19:19 11/20/24 19:19 11/20/24 19:19
Height 5 ft 2 in
Actual Weight 61.859 kg
Body Mass Index (BMI) 25.0
�
Physical Exam:�
General Appearance/Observation: Well-developed, well-nourished female in no apparent distress.�
Pain/Comfort Assessment: Denies�
Mood/Affect: Appropriate�
�
Integumentary/Operative Site:�
�� Pressure Ulcer Evaluation: absent over heels.�
Eyes: Conjunctiva/Lids: normal��� Pupils: pupils equal round and reactive to light and Accommodation
Ears/Nose/Throat: oral mucosa moist, throat clear.������������ Lips/Teeth/Gums: normal
Neck: No muscle spasm or tenderness�
Cardiovascular: Heart: regular, no murmur�
Pulses: dorsalis pedis 2+ bilaterally�
Respiratory: Respiratory Effort/Chest Expansion: normal������ Auscultation: Clear to auscultation bilaterally
Gastrointestinal: abdomen not tender, no distension, normal abdominal bowel sounds
Genitourinary: No Rodriguez�
Rectal Exam: Deferred�
Extremities:�Edema: None�Cyanosis: None�Trophic�changes: None
�
Neurology Exam:
Orientation: Alert, Oriented to self, Time, Place�
Memory: Intact for recent medical concerns
Repetition: Intact
Comprehension: Intact
Two step command: Intact
Naming: Intact
Able to read analog clock correctly from across the room.
Cranial Nerves:
�� CNII:�Pupillary light reflex: Intact���Visual Field: Intact
�� CN III, IV, : Extraocular muscles: Intact�
�� CN V:�Facial Sensation�at�Forehead: Intact,�Maxilla: Intact,�Mandible: Intact
�� CN VII:�Facial movement: Slight right facial weakness
�� CN VIII:�Hearing: Normal
�� CN IX/X:�Speech & swallow: Normal,�Position of Uvula: Midline
�� CN XI:�Shoulder shrug: Symmetric
�� CN XII:�Tongue protrusion: Midline
Sensory:
�� Light touch: Intact in bilateral upper and lower extremities
�
Reflexes:
�� Biceps: 2+ bilaterally
�� Brachioradialis: 2+ bilaterally
�� Triceps: 2+ bilaterally
�� Patellar: 2+ bilaterally
�� Achilles: 2+ bilaterally
�� Babinski: Down going bilaterally
�� Clonus: None
�� Sindi: Negative bilaterally�
Cerebellar: Dysmetria/Ataxia: None�
Musculoskeletal: Motor: (Manual muscle scale 0-5)�
Muscle SA EF WE EE FF FA HF KE DF EHL PF
Right� 4 5 5 4 5 4 4 4 4 4 5
Left 5 5 5 5 5 5 5 5 5 5 5
�
Tone: Normal in all extremities�
Range of Motion: Passively within normal limits in all extremities�
�
Lab Results
Laboratory Data
11/18/24 07:45
11/18/24 07:45
PT 12.8 Sec (11.4-14.6) 11/16/24 12:05
INR 0.92 11/16/24 12:05
Total Bilirubin 0.7 mg/dl (0.2-1.3) 11/16/24 12:05
AST 33 U/L (14-36) 11/16/24 12:05
ALT 30 U/L (0-35) 11/16/24 12:05
Alkaline Phosphatase 81 U/L (38-126) 11/16/24 12:05
Total Protein 8.5 g/dl (6.3-8.2) H 11/16/24 12:05
Albumin 4.7 g/dl (3.5-5.0) 11/16/24 12:05
�
Diagnostic Results:�as per HPI�
�
Assessment
69y/o R-handed F PMH (HTN, anxiety/depression) with 11/16/2024 with difficulty with balance from acute ischemic infarct in the periventricular posterior left frontal lobe�anterior left parietal lobe junction resulting in ADL and ambulatory dysfunction
Plan�
PM&R�PT/OT to increase independence with ADLs, improve balance, coordination, endurance, strength, mobility, community reintegration, decreased burden of care on others and family education.�
�
CVA: Secondary prophylaxis with aspirin, statin, and blood pressure control (SBP less than 180 and diastolic less than 100 to participate with therapy for ischemic stroke). Continue to monitor neurologic status.�
Right nondominant hemiparesis: High risk for falls and sliding out of chair/bed. Safety reinforced.�
- Avoid using affected arm to help lift or pull patient as this will cause trauma to the shoulder.
��
HTN: Olmesartan 20 mg daily, monitor closely�
Psych:Monitor mood, adjust medications as needed.�
Skin: monitor for pressure sores/rashes/lesions.�
Pain: acetaminophen as needed.�
Bowel: MiraLAX and Senna, PRN bisacodyl.� Was a bit constipated.
Bladder: Time void, PVRs, PRN straight cath.�
DVT Prophylaxis: Mechanical and Lovenox.�
Pulmonary: Incentive spirometry�
Safety: Continue to reinforce assistance with all transfers.�
Code Status:� Full code
Dispo�(date/plan/equipment needs): Home with family care.� Social history reviewed.�
Functional and Medical Goals:�Modified Independent with ADL�s, ambulation, transfers�
Discharge Destination:�Acute inpatient rehabilitation�
A total of 60 minutes were spent with the patient preparing for the evaluation, obtaining history, performing examination and evaluation, counseling, data review, case management, care coordination, recorder of deeds, and EMR documentation.
Consultation
-
Date/Time Consultation Performed: 11/20/2024
Requesting Provider: Dr. Amanda Mercado
Performing Provider: Dr. Gavino Herrmann
Reason for Consultation: Stroke
[2024-11-21 03:43] VITALS: BP 151/71
[2024-11-21 07:40] VITALS: BP 156/88
[2024-11-21 07:53] LABS: Hematocrit 42.2 % (37.0-47.0); Hemoglobin 14.5 g/dL (12.0-16.0); Mean Corp Hgb Conc. 34.4 g/dL (33.0-37.0); Mean Corpuscular Volume 84.4 fL (81.0-99.0); Platelet Count 235 10^3/uL (130-400); Red Cell Dist. Width 13.0 % (11.5-14.5)
[2024-11-21 08:13] LABS: Blood Urea Nitrogen 10 mg/dl (7-17); Calcium 9.9 mg/dl (8.4-10.2); Carbon Dioxide 25 mmol/L (22-30); Chloride 110 mmol/L (98-107); Estimated Creatinine Clearance 58 ml/min; Glucose 97 mg/dl (70-99); Potassium 4.8 mmol/L (3.5-5.1); Sodium 141 mmol/L (135-145); eGFR > 60.00
[2024-11-21] MEDS: CYMBALTA DELAYED RELEASE 40 MG PO (08:51)
[2024-11-21] MEDS: MIRALAX PO ×2 (08:51→09:04)
[2024-11-21] MEDS: BENICAR 20 MG PO (08:51)
[2024-11-21] MEDS: SENOKOT PO ×3 (08:51→19:55)
[2024-11-21] MEDS: LOW STRENGTH ASPIRIN 81 MG PO (08:52)
[2024-11-21] MEDS: FLUSH (NSS) 1 FLUSH IV (08:52)
[2024-11-21 11:20] VITALS: BP 175/76
[2024-11-21] MEDS: NORVASC 2.5 MG PO (13:13)
--- NOTE | 2024-11-21 13:28 | CM ---
Addendum entered by Jaelyn Walters 11/22/24 08:28:
Patient with [facility] medicare advantage, peer to peer unable to be completed due to medicare rules.
Offered Member Appeal- [phone].
Spoke with patient and spouse bedside, member appeal information given.
Per patient and spouse they do not want to appeal.
Offered skilled rehab.
Patient would prefer home with VN.
VN options reviewed, chose [facility]. Referral given to liaison.
Updated resident.
Plan:
Home with [facility], spouse will transport.
Addendum entered by Jaelyn Walters 11/21/24 16:16:
TC to [facility]-
Spoke with Ole from providers re pending Acute rehab case reference # [id number]
Case has nazia denied for acute rehab,
Peer to Peer # [phone]
member appeals number [phone]
Sent to MDR to see if appeal could be completed.
Original Note:
[facility] authorization pending.
There is a [facility] bed available if auth is received.
--- NOTE | 2024-11-21 13:50 | W.PN.HOSP.TC ---
Addendum entered and electronically signed by Amanda Mercado MD 11/21/24 16:20:
Seen and examined the patient earlier with the resident. Agree with plan of care
Discussed with at bedside regarding echo and need for outpatient follow-up after discharge
Discussed case management regarding discharge plan and that patient is ready for discharge to rehab
Original Note:
Today's Communication/Plan
-
For discharge to acute rehab
Assessment / Plan
Assessment / Plan
# Acute gait dysfunction Likely from CVA
-MRI of the brain as above
-Echo as above. CUS pending
-Neurology & Physiatry consultation noted with thanks
-Continue aspirin, statin.
-No Plavix
-Discharge home to acute rehab
-See in neuro outpatient, repeat Brain MRI W/WO in November
-Echo and carotid ultrasound done,
Echo showed Moderate Aortic regurgitation increased from last echo
Fu up with outpatient cardiology
Carotid Us- No significant bulb plaques or carotid stenosis
# Severe discogenic degenerative disease
-C4-C5 with disc herniation for outpatient spine evaluation
# Hypertension-
-20mg Benicar still having elevated blood pressure
-Amlodipine 2.5mg
# Depression and anxiety
-Continue Cymbalta(40mg) and trazodone(100mg) @night.
# Fibromyalgia/arthritis/scoliosis
# Full code
# DVT prophylaxis-SCDs
Anticipated Discharge: Today
Subjective/Interval History
-
Date of Service: November 21, 2024
Patient is a 69-year-old female who presented 5 days ago on account of acute balance problems for 1 week with recurrent falls.
Feels she is getting better, no complains today
Objective Data
-
Labs:
Laboratory Results
11/21/24
07:17
WBC 7.5
Hgb 14.5
Hct 42.2
Plt Count 235
Sodium 141
Potassium 4.8
Chloride 110 H
Carbon Dioxide 25
BUN 10
Creatinine 0.7
Glucose 97
Calcium 9.9
Vital Signs:
Vital Signs
Temp Pulse Resp BP Pulse Ox
98.0 F 77 16 175/76 98
11/21/24 11:20 11/21/24 11:20 11/21/24 11:20 11/21/24 11:20 11/21/24 11:20
I&O
11/20/24 11/21/24 11/22/24
06:59 06:59 06:59
Intake Total 1060 / 1060 1080 / 1080
Balance 1060 / 1060 1080 / 1080
Review of Systems
-
History Source: Patient
Constitutional: Reports No Symptoms, Not Done and Fever
EENT: Reports No Symptoms Reported
Respiratory: Reports No Symptoms
Cardiac: Reports No Symptoms
Abdomen/GI: Reports No Symptoms
Genitourinary: Reports No Symptoms
Musculoskeletal: Reports No Symptoms
Physical Exam
-
General: Well Developed and Well Nourished
HEENT: Normocephalic and Atraumatic
Respiratory: Clear to Auscultation
Cardiac: Regular Rhythm and S1/S2
GI: Soft, Nontender and Nondistended
Neuro: Awake, Alert, Oriented, AO x 3 and Other (FACE- L/R Motor symmetry & equal sensation grossly, UE- R- 4+ strength, sensation grossly intact, mild pronator drift L- 5+ strength, sensation grossly intact LE- R- 4+ strength, sensation grossly
intact, L- 5+ strength, sensation grossly intact)
Psych: Calm
Data Reviewed
-
Ultrasound: Report Reviewed by me, Discussed with Physician and Discussed with Patient
Medical Tests (Nuc Med, Echo etc): Report Reviewed by me, Discussed with Physician and Discussed with Patient
Labs: Labs Reviewed by me, Discussed with Physician and Discussed with Patient
[2024-11-21 15:30] VITALS: BP 160/78
[2024-11-21] MEDS: LOVENOX 40 MG SC (18:08)
[2024-11-21] MEDS: LIPITOR 40 MG PO (18:08)
[2024-11-21 19:33] VITALS: BP 176/87
[2024-11-21] MEDS: DESYREL 100 MG PO (19:55)
[2024-11-21 23:40] VITALS: BP 151/77
[2024-11-22 03:42] VITALS: BP 174/80
[2024-11-22 07:00] VITALS: BP 161/75
[2024-11-22 07:40] LABS: Hematocrit 42.0 % (37.0-47.0); Hemoglobin 14.3 g/dL (12.0-16.0); Mean Corp Hgb Conc. 34.0 g/dL (33.0-37.0); Mean Corpuscular Volume 85.2 fL (81.0-99.0); Platelet Count 240 10^3/uL (130-400); Red Cell Dist. Width 13.0 % (11.5-14.5)
--- NOTE | 2024-11-22 07:53 | W.PN.HOSP.TC ---
Addendum entered and electronically signed by Amanda Mercado MD 11/22/24 13:30:
Seen and examined the patient with resident. Agree with the plan formulated together
Patient without any new deficits
Blood pressure slightly elevated, increased Norvasc to 5 mg
Physiatry recommended rehab however insurance declined it
Patient does not want to privately pay for rehab or SNF she wants to go home with her
Has been requested home PT instead of outpatient PT because he has a gym and he would want her to start working there with physical therapy.
We have given a prescription for rolling walker
Medicines discussed with pharmacy patient and
Discussed with case management and nursing
Called cardiology office and arranged for a follow-up for aortic regurgitation patient was given an appointment
Total discharge coordination time more than 30 minutes
Original Note:
Today's Communication/Plan
-
For discharge to home with home care
Blood pressure log at home.
Follow up with primary care, through operator and neurologist
Assessment / Plan
Assessment / Plan
# Acute gait dysfunction Likely from CVA
-Neurology & Physiatry consultation noted with thanks
-Continue aspirin, statin.
-No Plavix
-Acute rehab was not approved
-She is being arranged for home care after discharge home
-See in neuro outpatient, repeat Brain MRI W/WO in November
-Echo and carotid ultrasound done,
Echo showed Moderate Aortic regurgitation increased from last echo
Fu up with outpatient cardiology
Carotid Us- No significant bulb plaques or carotid stenosis
# Severe discogenic degenerative disease
-C4-C5 with disc herniation for outpatient spine evaluation
# Hypertension-
-20mg Benicar still having elevated blood pressure
-Had Amlodipine 10mg today, continue with 5mg tomorrow
-Counselled on blood pressure log at home and to take to her pcp during fu
# Depression and anxiety
-Continue Cymbalta(40mg) and trazodone(100mg) @night.
# Fibromyalgia/arthritis/scoliosis
# Full code
#Dispo, home with home care
# DVT prophylaxis-SCDs
Anticipated Discharge: Today
Anticipated Discharge: Today
Subjective/Interval History
-
Date of Service: November 22, 2024
Patient is a 69-year-old female who presented on account of acute balance problems for 1 week with recurrent falls.
She has no new complains, states that she only has some tingling in her fingers.
Objective Data
-
Labs:
Laboratory Results
11/22/24
07:14
WBC 8.1
Hgb 14.3
Hct 42.0
Plt Count 240
Sodium Pending
Potassium Pending
Chloride Pending
Carbon Dioxide Pending
BUN Pending
Creatinine Pending
Glucose Pending
Calcium Pending
Vital Signs:
Vital Signs
Temp Pulse Resp BP Pulse Ox
98.3 F 83 18 174/80 96
11/22/24 03:42 11/22/24 03:42 11/22/24 03:42 11/22/24 03:42 11/22/24 03:42
I&O
11/21/24 11/22/24 11/23/24
06:59 06:59 06:59
Intake Total 1080 / 1080 960 / 960
Balance 1080 / 1080 960 / 960
Review of Systems
-
History Source: Patient
Constitutional: Reports No Symptoms, Not Done and Fever
EENT: Reports No Symptoms Reported
Respiratory: Reports No Symptoms
Cardiac: Reports No Symptoms
Abdomen/GI: Reports No Symptoms
Genitourinary: Reports No Symptoms
Musculoskeletal: Reports No Symptoms
Physical Exam
-
General: Well Developed and Well Nourished
HEENT: Normocephalic and Atraumatic
Respiratory: Clear to Auscultation
Cardiac: Regular Rhythm and S1/S2
GI: Soft, Nontender and Nondistended
Neuro: Awake, Alert, Oriented, AO x 3 and Other (FACE- L/R Motor symmetry & equal sensation grossly, UE- R- 4+ strength, sensation grossly intact, mild pronator drift L- 5+ strength, sensation grossly intact LE- R- 5+ strength, sensation grossly
intact, L- 5+ strength, sensation grossly intact)
Psych: Calm
Data Reviewed
-
Labs: Labs Reviewed by me, Discussed with Physician and Discussed with Patient
[2024-11-22 08:21] LABS: Blood Urea Nitrogen 13 mg/dl (7-17); Calcium 10.0 mg/dl (8.4-10.2); Carbon Dioxide 29 mmol/L (22-30); Chloride 108 mmol/L (98-107); Estimated Creatinine Clearance 51 ml/min; Glucose 97 mg/dl (70-99); Potassium 4.4 mmol/L (3.5-5.1); Sodium 141 mmol/L (135-145); eGFR > 60.00
[2024-11-22] MEDS: CYMBALTA DELAYED RELEASE 40 MG PO (08:36)
[2024-11-22] MEDS: LOW STRENGTH ASPIRIN 81 MG PO (08:37)
[2024-11-22] MEDS: BENICAR 20 MG PO (08:38)
[2024-11-22] MEDS: SENOKOT 17.2 MG PO (08:38)
[2024-11-22] MEDS: MIRALAX 17 GRAMS PO (08:39)
[2024-11-22] MEDS: NORVASC 2.5 MG PO ×2 (08:39→10:35)
--- NOTE | 2024-11-22 09:02 | VNURNOTE ---
Home Health Liaison met with patient at bedside to discuss [facility] nurse/therapy, visits, schedule and homebound status. Patient is agreeable and understands that visits at home will be 2-3 x per week to assess and teach medical management. Pt has
a small dog at home, reviewed pet policy and pt is agreeable. Patient is aware that [facility] will contact them for start of care in 1-2 days after discharge from . Provided contact number for [facility].
[facility] referral completed in [facility].
[2024-11-22 10:35] VITALS: BP 175/87; PULSE 82; O2SAT 97
[2024-11-22 11:25] VITALS: BP 164/82
[2024-11-22] MEDS: NORVASC 5 MG PO (12:10)
--- NOTE | 2024-11-22 12:11 | CM ---
Addendum entered by Jaelyn Walters 11/22/24 14:27:
Script for RW given to Physical Therapy, they will provide RW for patient prior to d/c.
Original Note:
Patient seen bedside.
IMM reviewed.
PT saw this am, recommend home with VN vs opt therapy.
TT to MD requesting order for RW.
Plan: home with spouse and [facility]
[2024-11-22 12:30] VITALS: BP 168/82
--- NOTE | 2024-11-22 13:36 | W.DCSUMMARY ---
Addendum entered and electronically signed by Amanda Mercado MD 11/24/24 16:09:
Read, reviewed, and agree. See same day progress note for additional details. Time spent coordinating care, DC planning, review of DC plan of care with resident, transition of care, review of records in EMR, med rec, consults, notes, d/w
consultants, nursing, family, and CM
Original Note:
Documented by User: Khushbu Marsh MD, Resident 11/22/24 15:47
Discharge Summary
Discharge Data
Date of Admission: 11/17/24
Date of Discharge: 11/22/24
-
Pending Results: No
Hospital Course
Discharging Physician : Khushbu Marsh MD, Amanda Mercado MD
Disposition : Home with home care
Primary care physician : Stephon Garcia
Principal Discharge diagnosis :
Acute gait dysfunction Likely from CVA
Hypertensive urgency
Chronic Discharge diagnosis :
Severe discogenic degenerative disease
Depression and anxiety
Fibromyalgia
Arthritis
Scoliosis
Hospital Course :
Patient is a 69-year-old female who presented to [facility] ED on 11/16/2024 account of acute balance problems for 1 week with recurrent falls .
She was found to be taking more Trazodone than was prescribed and had been weened from lorazepam 3months prior to presentation.
During evaluation, she was in no obvious distress blood pressure was 208/86. She was found to have some focal neurological deficits including right upper and lower extremity weakness. Stroke work up was started and neurology consulted. She was
outside the time window for TNK. CT was inconclusive for acute etiology, MRI revealed multiple infarcted areas per below. Permissive HTN was initially recomended but later . Neurology started her on aspirin and high intensity statin. He opted to
avoid plavix for high suspicion of amyloid angiopathy and recommended genetic testing for children as well. Echo revealed normal EF with no evidence of PFO. It did note moderate aortic regurgitation. Carotid US revealed no stenosis. She was
continued on Olmesartan 20mg and initiated on Amlodipine 5mg,
Today, patient is clinically stable for discharge. Neurology recommends strict blood pressure control. She was discharged on Atorvastatin 40mg, Aspirin 81mg, Amlodipine 5mg and Olmesartan 20mg
She is to continue physical therapy at home, and follow up with Primary care, Neurology and Cardiology outpatient clinic.
Important imaging findings :
Carotid US 11/20/24
Echo revealed normal EF with no evidence of PFO. It did note moderate aortic regurgitation
Echo 11/20/24:
SUMMARY
1. Normal left ventricular size and systolic function. LVEF 60-65%.
2. Moderate aortic regurgitation.
3. There is no evidence of a patent foramen ovale by Doppler.
4. Compared to 03/03/18: aortic valve regurgitation has progressed from mild to moderateBilateral carotid US 11/20/24 IMPRESSION: No significant carotid bulb plaque demonstrated on either side, and no evidence of hemodynamically significant carotid
stenosis as per modified Society of Radiologists in Ultrasound consensus criteria (IAC carotid criteria white paper, 2020).
MRI 11/17/24 IMPRESSION:
1. 6.5 mm ACUTE ISCHEMIC INFARCT in the periventricular posterior left frontal lobe-anterior left parietal lobe junction.
2. Small chronic lacunar infarcts in the left thalamus and anterior limb of the right internal capsule.
3. 1.0 cm lesion in the right ventral medulla. Diagnostic possibilities are (1) a subacute ischemic infarct containing residual cytotoxic edema, (2) osmotic demyelination, or (3) a primary brain tumor.
4. Small chronic intraparenchymal microhemorrhages in the thalami and deborah (probably HYPERTENSIVE MICROANGIOPATHY).
5. Mild to moderate white matter leukoaraiosis in the frontal and parietal lobes.
6. Mild diffuse cerebral and cerebellar volume loss.
7. Severe discogenic degenerative disease at C4/C5 with a moderate-sized central disc herniation causing moderate spinal cord compression and central canal stenosis.
Discharge Plan
-
Patient Disposition: Home with Home Care
Discharge Diagnosis/Procedures: Acute gait dysfunction Likely from CVA
Hypertension
Condition: Fair
Diet: As tolerated
Activity: As tolerated
Driving Restrictions: Not until seen by your Dr
Bathing Restrictions: None
Other Services: VN and PT
Activity Restrictions/Additional Instructions:
You are given an appointment with cardiology on 12/19/2024 at 4:20 PM. Follow-up for leaky valve
Referrals:
Kiran Page MD [Active, Cardiology] - 12/19/24 4:20 pm
Stephon Garcia DO [Family Provider, [facility]] - in less than 1 week
Additional Discharge Medication Instructions: Take Amlodipine 5 mg tablet 1 by mouth once daily
Take Aspirin 81mg tablet 1 by mouth once daily
Take Atorvastatin 40mg tablet 1 by mouth once daily
Take Trazodone 100mg tablet 1 by mouth at night only
Follow up with the neurology clinic, repeat MRI of the brain in November for further evaluation
Follow up with cardiology outpatient clinic, repeat echo in 4 month
Continue your other medications you have been taking
Dosage of amlodipine or Benicar can be increased if the blood pressure runs high. Follow-up with PCP
Prescriptions:
New
atorvastatin 40 mg Tablet
40 mg PO QPM Qty: 30 0RF
aspirin 81 mg Tablet,Chewable
81 mg PO DAILY Qty: 30 0RF
trazodone 100 mg Tablet
100 mg PO HS Qty: 30 0RF
amlodipine 5 mg Tablet
5 mg PO DAILY Qty: 30 0RF
Continued
olmesartan [Benicar] 20 mg Tablet
20 mg PO DAILY
Changed
duloxetine 20 mg Capsule,Delayed Release(Dr/Ec)
40 mg PO DAILY Qty: 0 0RF
Discontinued
trazodone 100 mg Tablet
100 mg PO TID
ibuprofen [Advil] 200 mg Tablet
400 mg PO DAILYPRN PRN (Reason: mild pain)
Discharge Orders:
Discharge Patient (As Directed); Ordered 11/22/24
Ordered By: Amanda Mercado
Discharge Date and Time
Discharge Date/Time: 11/22/24 15:48
Print Language: SWISS

Documented by User: Amanda Mercado MD 11/24/24 16:09
Discharge Summary
Discharge Data
Date of Admission: 11/17/24
Date of Discharge: 11/24/24
Discharge Plan
-
Patient Disposition: Home with Home Care
Discharge Diagnosis/Procedures: Acute gait dysfunction Likely from CVA
Hypertension
Condition: Fair
Diet: As tolerated
Activity: As tolerated
Driving Restrictions: Not until seen by your Dr
Bathing Restrictions: None
Other Services: VN and PT
Activity Restrictions/Additional Instructions:
You are given an appointment with cardiology on 12/19/2024 at 4:20 PM. Follow-up for leaky valve
Referrals:
Kiran Page MD [Active, Cardiology] - 12/19/24 4:20 pm
Stephon Garcia DO [Family Provider, Family Practice] - in less than 1 week
Additional Discharge Medication Instructions: Take Amlodipine 5 mg tablet 1 by mouth once daily
Take Aspirin 81mg tablet 1 by mouth once daily
Take Atorvastatin 40mg tablet 1 by mouth once daily
Take Trazodone 100mg tablet 1 by mouth at night only
Follow up with the neurology clinic, repeat MRI of the brain in November for further evaluation
Follow up with cardiology outpatient clinic, repeat echo in 4 month
Continue your other medications you have been taking
Dosage of amlodipine or Benicar can be increased if the blood pressure runs high. Follow-up with PCP
Prescriptions:
New
atorvastatin 40 mg Tablet
40 mg PO QPM Qty: 30 0RF
aspirin 81 mg Tablet,Chewable
81 mg PO DAILY Qty: 30 0RF
trazodone 100 mg Tablet
100 mg PO HS Qty: 30 0RF
amlodipine 5 mg Tablet
5 mg PO DAILY Qty: 30 0RF
Continued
olmesartan [Benicar] 20 mg Tablet
20 mg PO DAILY
Changed
duloxetine 20 mg Capsule,Delayed Release(Dr/Ec)
40 mg PO DAILY Qty: 0 0RF
Discontinued
trazodone 100 mg Tablet
100 mg PO TID
ibuprofen [Advil] 200 mg Tablet
400 mg PO DAILYPRN PRN (Reason: mild pain)
Discharge Orders:
Discharge Patient (As Directed); Ordered 11/22/24
Ordered By: Amanda Mercado
Discharge Date and Time
Discharge Date/Time: 11/22/24 15:48
Print Language: SWISS
[2024-11-22 13:39] VITALS: BP 166/76
--- NOTE | 2024-11-22 16:47 | PTCARENOTE ---
Discharge order acknowledged. Medication regiment and discharge instructions reviewed with patient. No further questions. Pt requested disk of reports from current admission, provided by medical records. Wheelchair escort to husbands car.
== END 2024-11-22 15:48 | disposition home health service (06) | DRG 64 ==
LOC: 4 EAST ACU 16:38
PROVIDERS: Emergency Medicine; Registered Nurse Critical Care Medicine; ADMITTING PHYSICIAN Hospitalist; ATTENDING PHYSICIAN Hospitalist; CONSULT PHYSICIAN Physical Medicine & Rehabilitation; CONSULT PHYSICIAN Psychiatry & Neurology Neurology; EMERGENCY PHYSICIAN Emergency Medicine; FAMILY PHYSICIAN Family Medicine
DX: I63.9 Cerebral infarction, unspecified (principal); G93.6 Cerebral edema; G81.91 Hemiplegia, unspecified affecting right dominant side; M50.021 Cervical disc disorder at C4-C5 level with myelopathy; I16.0 Hypertensive urgency; F32.A Depression, unspecified; F41.9 Anxiety disorder, unspecified; M79.7 Fibromyalgia; M41.9 Scoliosis, unspecified; M19.90 Unspecified osteoarthritis, unspecified site; R29.6 Repeated falls; I10 Essential (primary) hypertension; Z82.0 Family history of epilepsy and other diseases of the nervous system; G47.00 Insomnia, unspecified; I08.0 Rheumatic disorders of both mitral and aortic valves; Z79.899 Other long term (current) drug therapy; Z91.199 Patient's noncompliance with other medical treatment and regimen due to unspecified reason; G24.9 Dystonia, unspecified
CPT/HCPCS: 70450; 70551; 74230; 80048; 80053; 80061; 80306; 81003; 82077; 82607; 82728; 82746; 83036; 83735; 84443; 84484; 85025; 85027; 85610; 92523; 92610; 92611; 93005; 93306; 93880; 97110; 97116; 97129; 97163; 97167; 97535; 99291